=== PATIENT | female | born 1995 | race Caucasian/White ===

== ENCOUNTER → 2019-06-14 | Outpatient (CLI) | payer MEDICAID ==
[2019-06-14 18:21] LABS: CHLAM PCR NOT DETECTED (NOT DETECT)
== END ==
LOC: LAB 16:41
PROVIDERS: ATTEND Nurse Practitioner Family
DX: R30.0 Dysuria (principal)
CPT/HCPCS: 87086; 87088; 87186; 87491; 87591

== ENCOUNTER 2020-03-19 14:05 | Emergency (ER) | payer BC, MEDICAID ==
--- NOTE | 2020-03-19 14:53 | ER Document Report ---
ED GI/ - General Chief Complaint: Vag Bleeding, +preg <12wks Stated Complaint: LOSS TASTE/CONGESTION/VAGINAL BLEEDING/CRAMPING Time Seen by Provider: 03/19/20 14:19 Primary Care Provider: JESSICA WATERS FNP-BC [Primary Care Provider] - Follow up as needed Mode of Arrival: Ambulatory Information source: Patient Notes: 24-year-old female 2 para 2 presents to the emergency room stating that she noticed some blood when she wiped after using the restroom earlier this morning. Also complaining of some light pelvic cramping. Took acetaminophen earlier this morning with some relief. Denies any nausea, vomiting, no urinary symptoms. Also complains of some sinus congestion and postnasal drip. Denies any fevers. Recent travel. No COVID-19 exposure. No concerns for COVID. TRAVEL OUTSIDE OF THE [place] IN LAST 30 DAYS: No - Related Data Allergies/Adverse Reactions: No Known Allergies Allergy (Verified 03/19/20 14:31) Past Medical History - General Information source: Patient - Social History Smoking Status: Never Smoker Frequency of alcohol use: Occasional Drug Abuse: None Family History: Reviewed & Not Pertinent Review of Systems - Review of Systems Constitutional: No symptoms reported EENT: Nose congestion Cardiovascular: No symptoms reported Respiratory: No symptoms reported Gastrointestinal: No symptoms reported Female Genitourinary: , Vaginal bleeding, Other - Pelvic cramping Musculoskeletal: No symptoms reported Skin: No symptoms reported Neurological/Psychological: No symptoms reported -: Yes All other systems reviewed and negative Physical Exam - Vital signs Vitals: Temp Pulse Resp BP Pulse Ox 97.9 F 108 H 20 147/88 H 100 03/19/20 14:09 03/19/20 14:09 03/19/20 14:03/19/20 14:03/19/20 14:09 - Notes Notes: VITAL SIGNS: Within normal limits. GENERAL: Mild acute distress, non-toxic appearance. HEAD: Normal with no signs of head trauma. EYES: PERRLA, EOMI, conjunctiva normal, no discharge. EARS: Hearing grossly intact. NOSE: Normal. THROAT: Oropharynx is normal. NECK: Normal range of motion, no tenderness, supple, no lymphadenopathy, No adenopathy, no JVD. CHEST: Clear breath sounds bilaterally. No wheezes, rales, or rhonchi. CARDIAC: Tachycardic, without murmurs, gallops, or rubs. VASCULAR: No Edema. Peripheral pulses normal and equal in all extremities. ABDOMEN: Normal and soft with no tenderness, no masses or pulsatile masses. No organomegaly. Positive bowel sounds x4. No CVA tenderness noted bilaterally. GASTROINTESTINAL: Bowel sounds normal GENITOURINARY: Normal, No tenderness LYMPATHTIC: No lymphadenopathy noted. MUSCULOSKELETAL: Good range of motion of all major joints. Extremities without clubbing, cyanosis or edema. NEUROLOGICAL: Alert and oriented x 3. No focal sensory or strength deficits. Speech normal. Follows commands appropriately. PSYCHIATRIC: Normal Affect, judgement and mood. SKIN: Normal appearance with no rashes or lesions. Course - Re-evaluation Re-evalutation: 03/19/20 15:03 Patient states she notes she is between 8 and 14 weeks as her menstrual cycles are irregular. Reviewed previous medical records patient is a positive does not need RhoGam work-up. Will get labs ultrasound reevaluate. Does not meet criteria for COVID testing. 03/19/20 16:50 Patient is resting comfortably she is pain-free on exam. No active bleeding. All test results reviewed with patient. Patient was counseled on need for repeat hCG and ultrasound in 48 hours. Return sooner for any new or worsening symptoms. She was given strict return to the emergency room guidelines for threatened miscarriage. Patient was given strict return to the emergency room guidelines. Return for any new or worsening symptoms. All questions were answered. Patient verbalized understanding and agrees with plan of care. - Vital Signs Vital signs: Temp Pulse Resp BP Pulse Ox 97.9 F 108 H 20 147/88 H 100 03/19/20 14:09 03/19/20 14:09 03/19/20 14:09 03/19/20 14:09 03/19/20 14:09 - Laboratory Result Diagrams: 03/19/20 15:03 03/19/20 15:03 Laboratory results interpreted by me: 03/19/20 03/19/20 14:53 15:03 ALT 49 H Beta HCG, Quant 50900.00 H Urine Ketones 20 H Urine Blood MODERATE H - Diagnostic Test Radiology reviewed: Reports reviewed Discharge - Discharge Clinical Impression: Threatened miscarriage Condition: Stable Disposition: HOME, SELF-CARE Instructions: Threatened Miscarriage ([facility]) Additional Instructions: Can take Tylenol as needed for pain. You need to have a repeat hCG and ultrasound in 48 hours. You are to return to the emergency room sooner for any new or worsening symptoms. If unable to see your PIPE W[facility]DER on Saturday return to the emergency room for your repeat hCG and ultrasound. Referrals: JESSICA WATERS FNP- [Primary Care Provider] - Follow up as needed ALYSSA PRUETT MD [ACTIVE PROVISIONAL STAFF] - Follow up in 3-5 days (need follow up in 2 days)
[2020-03-19 15:11] LABS: APPEARANCE,URINE SLIGHTLY-CLOUDY; BILIRUBIN,URINE NEGATIVE (NEGATIVE); COLOR,URINE YELLOW; GLUCOSE, URINE NEGATIVE (NEGATIVE); KETONES,URINE 20 mg/dL (NEGATIVE); LEUKOCYTE ESTERASE,URINE NEGATIVE (NEGATIVE); NITRITE,URINE NEGATIVE (NEGATIVE); PROTEIN,URINE NEGATIVE (NEGATIVE); UROBILINOGEN,URINE NEGATIVE mg/dL (<2.0)
[2020-03-19 15:46] LABS: ABSOLUTE EOSINOPHILS # (AUTO) 0.2 10^3/uL (0.0-0.6); ABSOLUTE LYMPHOCYTES (AUTO) 1.9 10^3/uL (0.5-4.7); ABSOLUTE MONOCYTES (AUTO) 0.6 10^3/uL (0.1-1.4); ABSOLUTE NEUT (AUTO) 4.2 10^3/uL (1.7-8.2); BASOPHILS % (AUTO) 0.4 % (0-2); HEMATOCRIT 42.7 % (36.0-47.0); HEMOGLOBIN 14.5 g/dL (12.0-15.5); MEAN CORPUSCULAR HEMOGLOBIN 30.8 pg (27.0-33.4); MEAN CORPUSCULAR HGB CONC 34.1 g/dL (32.0-36.0); MEAN CORPUSCULAR VOLUME 90 fl (80-97); MONOCYTES % (AUTO) 8.7 % (3-13); PLATELET COUNT 222 10^3/uL (150-450); RED BLOOD COUNT 4.73 10^6/uL (3.72-5.28); RED CELL DISTRIBUTION WIDTH 13.3 % (11.5-14.0); SEGMENTED NEUTROPHILS % (AUTO) 60.9 % (42-78); TOTAL CELLS COUNTED % (AUTO) 100 %; WHITE BLOOD COUNT 6.9 10^3/uL (4.0-10.5)
[2020-03-19 15:48] LABS: ALBUMIN 4.1 g/dL (3.5-5.0); ALKALINE PHOSPHATASE 60 U/L (38-126); ANION GAP 9 (5-19); ASPARTATE AMINO TRANSFERASE 31 U/L (14-36); BILIRUBIN,TOTAL 0.5 mg/dL (0.2-1.3); BLOOD UREA NITROGEN 15 mg/dL (7-20); CALCIUM 9.1 mg/dL (8.4-10.2); CARBON DIOXIDE 27 mmol/L (22-30); CHLORIDE 101 mmol/L (98-107); GLUCOSE 100 mg/dL (75-110); POTASSIUM 4.4 mmol/L (3.6-5.0); TOTAL PROTEIN 7.1 g/dL (6.3-8.2)
--- NOTE | 2020-03-19 16:33 | RADIOLOGY REPORT (SQ) ---
EXAM DESCRIPTION: U/S OB TRANSVAG W/DOPPLER IMAGES COMPLETED DATE/TIME: 03/19/2020 4:10 pm REASON FOR STUDY: bleeding/pain COMPARISON: None. TECHNIQUE: Transvaginal static and realtime grayscale images acquired of the pelvis. Additional christophe cted spectral and color Doppler images recorded. All images stored on PACs. CLINICAL AGE: Not available bHCG: Pending. LIMITATIONS: None. FINDINGS: UTERUS: The uterus measures 9.3 x 5.7 x 5.9 cm. The cervix measures 3.4 cm in length. GESTATIONAL SAC: Mean diameter of 1.02 cm, corresponding to a gestational age of 5 weeks 5 days. YOLK SAC: Not visualized. POLE: None present. RIGHT ADNEXA: The right ovary was not visualized, obscured by overlying bowel gas. LEFT ADNEXA: The left ovary measures 4.0 x 3.3 x 4.1 cm. Flow by Doppler was shown to the left ovary . There is a 3.0 x 2.6 x 2.7 cm cyst . FREE FLUID: None. IMPRESSION: 1. POSSIBLE EARLY INTRAUTERINE . CONSIDER FOLLOW-UP SERUM BHCG AND ULTRASOUND FOR VERIFICATION AND TO EXCLUDE ECTOPIC . 2. 3.0 CM CYST AT THE LEFT OVARY. 3. NONVISUALIZED RIGHT OVARY. Trimester of : First trimester - 0 to 13 weeks. TECHNICAL DOCUMENTATION: JOB ID: [id number] 2010 [employer]- All Rights Reserved Reading location - IP/workstation name: [email or web address]
[2020-03-19 17:13] VITALS: BP 140/80
== END 2020-03-19 17:13 | disposition home or self-care (01) ==
LOC: ER 14:05
DX: O20.0 Threatened abortion (principal)
CPT/HCPCS: 36415; 76817; 80053; 81001; 84702; 85025; 93976; 99284